=== PATIENT | male | born 1975 | race Two or more races ===

== ENCOUNTER 2022-11-21 13:42 | Emergency (ER) | payer MEDICAID, OTHER ==
[~2022-11-21] VITALS: Ht 175.3 cm; Wt 86.4 kg
[~2022-11-21 13:42] MED LIST: ONDA8TAB6 PO
[2022-11-21 14:10] VITALS: BP 129/93; PULSE 86; RESP 18; TEMP 98; O2SAT 99
[2022-11-21] MEDS ORDERED: dexamethasone sod phosphate 10mg/ml inj IM STA (16:09)
[2022-11-21] MEDS ORDERED: HYDR-3973 PO (17:01)
[2022-11-21] MEDS ORDERED: METH4TAB81 PO (17:04)
== END 2022-11-21 17:32 | disposition home or self-care (01) ==
LOC: ER 13:42
DX: M54.50 Low back pain, unspecified (principal); M54.6 Pain in thoracic spine; Z79.899 Other long term (current) drug therapy
CPT/HCPCS: 72070; 72100; 96372; 99284; J1100

== ENCOUNTER 2023-01-01 05:29 | Emergency (ER) | payer OTHER ==
[~2023-01-01] VITALS: Ht 175.3 cm; Wt 86.8 kg
[~2023-01-01 05:29] MED LIST changes: +METH4TAB81 PO
--- NOTE | 2023-01-01 06:28 | NUR ---
received report from selina giordano assuming care of pt
--- NOTE | 2023-01-01 08:28 | NUR ---
WOUND IRRIGATION COMPLETED CLEAN GUAZE TO SITE WAITING ON PROVIDER TO ASSESS/TX LAC TRAY AT BEDSIDE
[2023-01-01] MEDS ORDERED: TETanus/Pertussis (Acell)/Diphther VAC/PF (Tdap-Adult) 0.5ml syringe IMVAC ONE (08:55)
[2023-01-01] MEDS ORDERED: LIDOcaine 1% W/epiNEPHrine 1:100,000 20ml vial IJ ONE (08:55)
[2023-01-01] MEDS ORDERED: DOXYCYCLINE 100MG CAPSULE PO STA (09:53)
[2023-01-01] MEDS ORDERED: DOXY-11 PO (09:54)
[2023-01-01] MEDS ORDERED: HYDROcodone/acetaminophen 10/325mg tab PO ONE (09:55)
--- NOTE | 2023-01-01 09:56 | NUR ---
DR. VALDEZ AT BEDSIDE WITH DERMABOND, ASKED TO ORDER NORCO 10
--- NOTE | 2023-01-01 10:28 | NUR ---
REPORT GIVEN TO BENITO TAVERAS ASSUMING CARE OF PT
[2023-01-01 10:43] VITALS: BP 141/94
--- NOTE | 2023-01-01 10:44 | NUR ---
NO RXN TO tdAp OR LOPES MEDS OR ABX. RIGHT THUMB DRIED DERMABOND BY MD, NON-STICK BANDAID OVER LACERATION, APPROXIMATED, NO BLEEDING, THUMB SPLINT WITH BELCROW STAY OVER AND COBAN. + CMS, NO NUMBNESS, RIGHT RADIAL PULSE +2, REGULAR, NO DIFFERENCE TO PRE-SPLINT ASSESSMENT. 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 AGREES. FRIEND SALLIE PATIENT. UNDERSTANDS ALL DC NOT TO GET DRESSING WET, CHANGE WHEN SOILED OR WET AND RETURN FOR S/S OF INFECTION.
[2023-01-01 10:54] VITALS: PULSE 87; RESP 18; TEMP 98.8; O2SAT 99
== END 2023-01-01 11:00 | disposition home or self-care (01) ==
LOC: ER 05:30
DX: S61.011A Laceration without foreign body of right thumb without damage to nail, initial encounter (principal); Z79.899 Other long term (current) drug therapy; X58.XXXA Exposure to other specified factors, initial encounter; Y93.89 Activity, other specified; Y92.89 Other specified places as the place of occurrence of the external cause; Y99.8 Other external cause status
CPT/HCPCS: 12001; 90471; 90715; 99283

== ENCOUNTER 2024-09-07 17:43 | Emergency (ER) | payer SELFPAY ==
[~2024-09-07] VITALS: Ht 175.3 cm; Wt 83.8 kg
[2024-09-07 17:47] VITALS: TEMP 97.8
[2024-09-07 18:47] LABS: ALANINE AMINOTRANSFERASE 42 U/L (12-78); ALBUMIN 3.9 G/DL (3.4-5.0); ALBUMIN/GLOBULIN RATIO 1.2 (1.1-1.5); ALKALINE PHOSPHATASE 92 IU/L (46-116); BILIRUBIN,TOTAL 0.5 MG/DL (0.1-1.0); BLOOD UREA NITROGEN 14 MG/DL (7-18); BUN/CREATININE RATIO 16.1 (10.0-20.0); CALCIUM 8.5 MG/DL (8.5-10.1); CREATININE 0.87 MG/DL (0.60-1.10); LIPASE 45 U/L (16-77); TOTAL CARBON DIOXIDE 29.1 MMOL/L (24-32); TOTAL PROTEIN 7.2 G/DL (6.4-8.2); eCRCL 106 ML/MIN; eGFR > 90 ML/MIN
[2024-09-07 18:58] LABS: GLUCOSE 354 MG/DL (70-104); POTASSIUM 3.7 MMOL/L (3.5-5.1); SODIUM 140 MMOL/L (135-145)
[2024-09-07 19:02] LABS: ASPARTATE AMINO TRANSFERASE 18 U/L (10-37)
[2024-09-07 19:03] LABS: ANION GAP 16 (8-16); CHLORIDE 95 MMOL/L (99-107)
[2024-09-07 19:25] LABS: BASOPHILS # (AUTO) 0.1 X10'3 (0-0.2); BASOPHILS % (AUTO) 1.2 % (0-1); EOSINOPHILS # (AUTO) 0.1 X10'3 (0-0.9); EOSINOPHILS % (AUTO) 1.2 % (0-6); HEMATOCRIT 43.2 % (42.0-52.0); HEMOGLOBIN 15.3 g/dl (14.0-17.9); LYMPHOCYTES # (AUTO) 1.9 X10'3 (1.1-4.8); LYMPHOCYTES % (AUTO) 35.7 % (21-51); MEAN CORPUSCULAR HGB CONC 35.4 g/dL (33.0-36.5); MEAN CORPUSCULAR VOLUME 90.2 FL (78-98); MEAN PLATELET VOLUME 10.4 FL (7.4-10.4); MONOCYTES # (AUTO) 0.4 X10'3 (0-0.9); MONOCYTES % (AUTO) 7.7 % (2-12); NEUTROPHILS # (AUTO) 2.9 X10'3 (1.8-7.7); NEUTROPHILS % (AUTO) 54.2 % (42-75); PLATELET COUNT 211 X10'3 (140-440); RED BLOOD COUNT 4.79 X10'6 (4.70-6.10); RED CELL DISTRIBUTION WIDTH 12.6 % (11.5-14.5); WHITE BLOOD COUNT 5.3 X10'3 (4.5-11.0)
[2024-09-07 22:19] LABS: BILIRUBIN,URINE NEGATIVE (Neg); CLARITY,URINE CLEAR (Clear); COLOR,URINE YELLOW (Yellow); GLUCOSE, URINE >=1000 mg/dl (Neg); KETONES,URINE 15 mg/dl (Neg); LEUKOCYTE ESTERASE ,URINE NEGATIVE (Neg); NITRITES, URINE NEGATIVE (Neg); OCCULT BLOOD,URINE NEGATIVE (Neg); PROTEIN,URINE NEGATIVE (Neg); UROBILINOGEN,URINE 0.2 E.U/dL (0.2-1.0)
[2024-09-07 22:20] LABS: UA COLLECTION TYPE CLN CATCH MIDSTREAM
[2024-09-07 22:21] LABS: BACTERIA,URINE NONE SEEN /HPF (Neg); MUCUS STRANDS NONE SEEN /LPF (Neg); RBC,URINE 0-2 /HPF (0-2); SQUAMOUS EPITHELIAL CELL,UR NONE SEEN /LPF (FEW); WBC,URINE 0-4 /HPF (0-4)
--- NOTE | 2024-09-07 22:57 | Physician Documentation ---
History of Present Illness ~ Chief Complaint: Hyperglycemia Stated Complaint: HIGH BLOOD SUGARS Time Seen by MD: 21:38 Primary Medical Doctor: PARVEZ WILBURN Mode of Arrival: POV, Ambulatory HPI This is a 48-year-old male with history of type 2 diabetes who presents due to increased number of high blood sugar readings, patient reports he was taking natural medicines to treat his high blood sugars but there were causing him to have hemochromatosis therefore stopped taking them. Patient reports no physical symptoms including no fever, abdominal pain, nausea, vomiting, diarrhea, or dysuria. Patient reports he feels otherwise well as only concerned because he has been having these high blood sugar readings. Medication Reconciliation Allergies: Coded Allergies: No Known Allergies (Unverified , 01/01/23) Scheduled Methylprednisolone (Medrol Dosepak), 4 MG PO DAILY Scheduled PRN Ondansetron Hcl (Zofran), 8 MG PO Q8HPRN PRN for nausea/vomiting Past Medical History Past Medical History: No Pertinent History Past Surgical History: no surgical history Alcohol Use: Occasionally Drug Use: none Review of Systems ROS High blood sugar readings as stated above in the HPI, otherwise all systems are reviewed and negative. Physical Exam Vital Signs: Temperature: 97.8, Source: Temporal, Heart Rate: 78, Respiratory Rate: 16, BP: 131/75, Pulse Oximetry: 99, Weight: 83.800 Oxygen Flow Rate: 0 Physical Exam VITALS: Reviewed and as above. GENERAL: Alert, nontoxic appearing, no apparent distress. RESPIRATORY: No increased work of breathing, no respiratory distress, speaking in full clear sentences, clear lung sounds in all benitez CV: Regular rate and rhythm no murmur GI: Nondistended, soft, nontender no rebound, no guarding bowel sounds present MUSCULOSKELETAL: SKIN: Warm and dry Progress Results/Orders Results/Orders Vital Signs 09/07/24 09/07/24 09/07/24 09/07/24 17:47 21:42 23:11 23:33 Temp 97.8 Pulse 78 72 76 Resp 18 16 16 16 B/P (MAP) 131/75 129/87 (101) 128/62 Pulse Ox 99 100 100 O2 Flow Rate 0 Laboratory Tests Test 09/07/24 17:50 09/07/24 18:01 09/07/24 22:10 09/07/24 23:07 Glucometer 357 H 247 H White Blood Count 5.3 Red Blood Count 4.79 Hemoglobin 15.3 Hematocrit 43.2 Mean Corpuscular Volume 90.2 Mean Corpuscular Hemoglobin 32.0 H Mean Corpuscular Hemoglobin Concent 35.4 Red Cell Distribution Width 12.6 Platelet Count 211 Mean Platelet Volume 10.4 Neutrophils (%) (Auto) 54.2 Lymphocytes (%) (Auto) 35.7 Monocytes (%) (Auto) 7.7 Eosinophils (%) (Auto) 1.2 Basophils (%) (Auto) 1.2 H Neutrophils # (Auto) 2.9 Lymphocytes # (Auto) 1.9 Monocytes # (Auto) 0.4 Eosinophils # (Auto) 0.1 Basophils # (Auto) 0.1 CBC Comment Sodium Level 140 Potassium Level 3.7 Chloride Level 95 L Carbon Dioxide Level 29.1 Anion Gap 16 Blood Urea Nitrogen 14 Creatinine 0.87 Estimated GFR/1.73 m2 > 90 BUN/Creatinine Ratio 16.1 Glucose Level 354 H Calcium Level 8.5 Total Bilirubin 0.5 Aspartate Amino Transf (AST/SGOT) 18 Alanine Aminotransferase (ALT/SGPT) 42 Alkaline Phosphatase 92 Total Protein 7.2 Albumin 3.9 Globulin 3.3 Albumin/Globulin Ratio 1.2 Lipase 45 Chemistry Comments Urine Specimen Description Cln catch midstream Urine Color Yellow Urine Clarity Clear Urine pH 6.0 Urine Specific [place] 1.020 Urine Protein Negative Urine Glucose (UA) >=1000 H Urine Ketones 15 H Urine Occult Blood Negative Urine Nitrite Negative Urine Bilirubin Negative Urine Urobilinogen 0.2 Urine Leukocyte Esterase Negative Urine RBC 0-2 Urine WBC 0-4 Urine Squamous Epithelial Cells None seen Urine Bacteria None seen Urine Mucus None seen Urine Culture Indicated Not ind Volume Urine Centrifuged 10 ml Urine Comment Medical Decision Making Findings This 48-year-old male with a history of diabetes presented with concern for multiple elevated blood glucose readings, of note patient reported not being on conventional antidiabetic medications and taking natural medicine for his diabetes, patient reports he has a history of hemochromatosis which was worsened by the medications he was taking for his diabetes. Patient reported feeling otherwise well and had no physical concerns or symptoms, lab work was unremarkable with the exception of elevated blood glucose level which did fall during stay without intervention, which was reassuring. I had a lengthy conversation with the patient and his significant other about the need for outpatient follow up for continued diabetes management, there was some disagreement with patient's significant other about the effectiveness of their primary care provider though I reiterated the need for primary care management. Patient vital signs stable and benign physical exam with decreasing blood glucose, he is appropriate for outpatient follow up. Differential Dx:Considerations: Include: Dehydration, Diabetes, Diabetic coma, DKA, Electrolyte abnormality, Gastritis, Hyperosmolar state, Hypoglycemia, Pancreatitis, UTI Departure Disposition: HOME / SELF CARE / HOMELESS Impression: Primary Impression: Hyperglycemia Additional Impression: History of diabetes mellitus Condition: Improved Discharge Instructions: Hyperglycemia, [id number] Additional Instructions: Your lab work was all reassuring, the only significant abnormality was your elevated blood sugar. You will need to follow up with your primary care provider for management of your diabetes as this is a chronic condition that requires [facility] follow up and management, please follow up with your primary care provider in the next few days. Please return to the emergency department for any new or worsening concerning symptoms. Referrals: NO PRIMARY CARE PROVIDER (PCP) Education Educated: Patient Educated regarding: diagnosis, treatment, prognosis, need for follow up Signature Scribe Signature: No scribe Attestation: The note accurately reflects work and decisions made by me.MARCELO Ha 09/08/24 02:48 VALDO NAIR Sep 07, 2024 22:57
[2024-09-07 23:33] VITALS: BP 128/62; PULSE 76; RESP 16; O2SAT 100
== END 2024-09-07 23:40 | disposition home or self-care (01) ==
LOC: ER 17:44
DX: E11.65 Type 2 diabetes mellitus with hyperglycemia (principal)
CPT/HCPCS: 36415; 80053; 81001; 82948; 83690; 85025; 99283